=== PATIENT | female | born 1940 | race Caucasian/White ===

== ENCOUNTER → 2016-10-02 | Outpatient (CLI) | payer MEDICARE ==
--- NOTE | 2016-10-02 10:18 | REPMRS ---
Patient History The patient states she had a clinical breast exam in 09/2016. Patient is postmenopausal. Family history of breast cancer in mother at age 63, breast cancer in maternal aunt, breast cancer in maternal cousin, and colorectal cancer in maternal uncle. Taking estrogen for 10 years. Digital Woman Screen Mammo: October 02, 2016 - Exam #: [id number] Bilateral CC and MLO view(s) were taken. Technologist: Rosa M Mccray, Technologist Prior study comparison: October 01, 2015, digital woman screen mammo performed at [facility] [employer] [facility]. November 20, 2014, digital woman screen mammo performed at [facility] [employer] [facility]. November 19, 2013, digital woman screen mammo performed at [facility] [employer] [facility]. FINDINGS: There are scattered fibroglandular densities. There is a moderate amount of residual fibroglandular tissue which is fairly symmetric. There is no interval development of dominant mass, architectural distortion, or clustered microcalcification typical of malignancy. There has been no change in the appearance of the mammogram from the prior studies. ASSESSMENT: BI-RADS/ACR category 1 mammogram. Negative. Recommendation Routine screening mammogram of both breasts in 1 year (for women over age 40). This mammogram was interpreted with the aid of an FDA-approved computer-aided dectection system. Electronically Signed By: Michael Asher MD 10/02/16 [id number]
== END ==
LOC: M WHC 09:34
PROVIDERS: ATTEND Nurse Practitioner Women's Health
DX: Z01.419 Encounter for gynecological examination (general) (routine) without abnormal findings (principal); Z12.12 Encounter for screening for malignant neoplasm of rectum; Z12.31 Encounter for screening mammogram for malignant neoplasm of breast; Z78.0 Asymptomatic menopausal state; Z79.810 Long term (current) use of selective estrogen receptor modulators (SERMs); Z80.3 Family history of malignant neoplasm of breast
CPT/HCPCS: G0101; G0202

== ENCOUNTER → 2017-11-15 | Outpatient (CLI) | payer MEDICARE | LOC: M WHC 09:56 | DX: Z01.419 Encounter for gynecological examination (general) (routine) without abnormal findings (principal); Z12.31 Encounter for screening mammogram for malignant neoplasm of breast (principal); Z78.0 Asymptomatic menopausal state; Z92.23 Personal history of estrogen therapy; Z80.3 Family history of malignant neoplasm of breast; Z79.899 Other long term (current) drug therapy | CPT/HCPCS: 77067; 87186 ==

== ENCOUNTER → 2017-11-15 | Outpatient (REF) | payer MEDICARE | LOC: M SFHCWAGY 15:42 | DX: R35.0 Frequency of micturition (principal); R30.0 Dysuria | CPT/HCPCS: 87186 ==

== ENCOUNTER → 2018-11-18 | Outpatient (CLI) | payer MEDICARE ==
--- NOTE | 2018-11-18 12:14 | REPMRS ---
Patient History The patient states she had a clinical breast exam in 12/03 Patient is postmenopausal. Family history of breast cancer at age 63 in mother, breast cancer in maternal aunt, breast cancer in maternal cousin, colorectal cancer in maternal uncle. Taking estrogen for 12 years. 3D TOMOSYNTHESIS WAS PERFORMED. Digital Woman Screen Mammo: November 18, 2018 - Exam #: [id number] Bilateral CC and MLO view(s) were taken. Technologist: Lucia Ozuna, Technologist Prior study comparison: November 15, 2017, digital woman screen mammo performed at [email or web address]. October 02, 2016, digital woman screen mammo performed at [email or web address] [facility]. FINDINGS: The breast tissue is heterogeneously dense. This may lower the sensitivity of mammography. There has been no change in the appearance of the mammogram from the prior studies. There is a moderate amount of residual fibroglandular tissue which is fairly symmetric. There is no interval development of dominant mass, areas of architectural distortion, or clustered microcalcification typical of malignancy. Assessment: BI-RADS/ACR category 1 mammogram. Negative Mammogram. Recommendation Routine screening mammogram in 1 year (for women over age 40). This mammogram was interpreted with the aid of an FDA-approved computer-aided dectection system. Electronically Signed By: Bentley Ritchie MD 11/18/18 [id number]
== END ==
LOC: M WHC 10:20
PROVIDERS: ATTEND Nurse Practitioner Women's Health
DX: Z12.31 Encounter for screening mammogram for malignant neoplasm of breast (principal); Z78.0 Asymptomatic menopausal state; Z92.23 Personal history of estrogen therapy; Z80.3 Family history of malignant neoplasm of breast; N95.2 Postmenopausal atrophic vaginitis
CPT/HCPCS: 77063; 77067; G0463